=== PATIENT | male | born 1950 | race American Indian/Alaskan Native ===

== ENCOUNTER 2016-05-14 10:34 | Outpatient (CLI) | payer OTHER ==
[2016-05-14 11:22] LABS: Hematocrit 40.5 % (35.5-45.6); Hemoglobin 13.1 gm/dl (11.8-15.2); Mean Corpuscular HGB Conc 32 % (32-34); Mean Corpuscular Hemoglobin 28 pg (28-32); Mean Corpuscular Volume 86 fl (84-94); Platelet Count 266 K/mm3 (140-440); Red Blood Count 4.73 M/mm3 (3.65-5.03); Red Cell Distribution Width 13.3 % (13.2-15.2); White Blood Count 6.5 K/mm3 (4.5-11.0)
--- NOTE | 2016-05-14 11:32 | XRay Report ---
ROUTINE CHEST, TWO VIEWS: HISTORY: Shortness of breath, COPD. The trachea, heart, mediastinal contour, lung miguel and bony thorax are unremarkable. IMPRESSION: Unremarkable chest x-ray. No convincing COPD changes.
[2016-05-14 11:43] LABS: Alanine Aminotransferase 13 units/L (7-56); Albumin 4.7 g/dL (3.9-5); Albumin/Globulin Ratio 1.9 %; Alkaline Phosphatase 73 units/L (35-129); Anion Gap 18 mmol/L; Bilirubin,Total 0.3 mg/dL (0.1-1.2); Blood Urea Nitrogen 14 mg/dL (9-20); Carbon Dioxide 28 mmol/L (22-30); Chloride 101.5 mmol/L (98-107); Cholesterol 173 mg/dL (50-199); Glucose 121 mg/dL (75-100); HDL Cholesterol 64 mg/dL (40-59); LDL Cholesterol,Direct 79 mg/dL (50-130); Potassium 3.7 mmol/L (3.6-5.0); Sodium 144 mmol/L (137-145); Total Protein 7.2 g/dL (6.3-8.2); Triglycerides 152 mg/dL (2-149)
== END 2016-05-14 10:35 | disposition home or self-care (01) ==
LOC: CARD 10:34
PROVIDERS: ATTEND Internal Medicine
DX: I10 Essential (primary) hypertension (principal); J44.9 Chronic obstructive pulmonary disease, unspecified
CPT/HCPCS: 36415; 71020; 80053; 80061; 82785; 84439; 84443; 85027; 93005; 93010

== ENCOUNTER 2016-07-28 11:51 | Outpatient (CLI) | payer OTHER ==
[2016-07-28] MEDS ORDERED: PROVENTIL IH ONE (12:11)
[2016-07-28 12:53] LABS: ISTAT Base Excess 3; ISTAT HCO3 27.5; ISTAT PCO2 42.6 (35-45); ISTAT PH 7.419 (7.35-7.45); ISTAT PO2 63 (80-105); ISTAT SO2 92; ISTAT TCO2 29
--- NOTE | 2016-07-29 01:18 | Pulmonary Function Test ---
SPIROMETRY: FVC 3.01 liters, which is 71% of predicted, FEV1 is 2.19 liters, which is 67% of predicted. FEV1/FVC ratio is 73. FLOW VOLUME LOOP. FEF 25-75% is 1.51 liters per second, which is 52% of predicted. MVV is 70% of predicted. LUNG VOLUMES: TLC is 5.23, which is 70% of predicted. The patient's DLCO is 59% of predicted. IMPRESSION: 1. Mild restrictive ventilatory impairment as evidenced by decrease in TLC. 2. Early obstructive ventilatory impairment as evidenced by decrease in FEF 25-75%. 3. Decrease in DLCO. JOB# [id number] AMY/MARISSA
== END 2016-07-28 11:52 | disposition home or self-care (01) ==
LOC: PF 11:51
PROVIDERS: ATTEND Internal Medicine
DX: J44.9 Chronic obstructive pulmonary disease, unspecified (principal)
CPT/HCPCS: 36415; 36600; 82803; 84439; 84443; 94060; 94640; 94726; 94729